=== PATIENT | female | born 1955 | race Caucasian/White ===

== ENCOUNTER 2017-11-17 09:41 | Emergency (ER) | payer BC, SELFPAY ==
[2017-11-17 09:42] VITALS: BP 111/61; PULSE 69; RESP 17; TEMP 36.8; O2SAT 99; BMI 23.6
--- NOTE | 2017-11-17 10:24 | RAD_ITS ---
STUDY: X-RAY - RIGHT SHOULDER REASON FOR EXAM: Female, 61 years old. Injury TECHNIQUE: 2 view(s) of the shoulder. COMPARISON: None. FINDINGS: There is comminuted fracture at the proximal humerus involving the neck and tuberosities. There is anteromedial displacement of the humeral shaft. Glenohumeral joint appears essentially intact. There are degenerative changes of the acromioclavicular joint. No osseous destruction. The soft tissue structures are unremarkable. Normal visualized pulmonary apex. RAD/Shoulder min 2 Views IMPRESSION: Comminuted fracture at the proximal humerus involving the neck and tuberosities with anteromedial displacement of the humeral shaft Intact glenohumeral joint Electronically Signed: Lalo Parnell MD at 11:29 EST Tel , Service support ,
--- NOTE | 2017-11-17 10:24 | RAD_ITS ---
STUDY: X-RAY - RIGHT ELBOW REASON FOR EXAM: Female, 61 years old. Injury TECHNIQUE: 3 view(s) of the elbow. COMPARISON: None. FINDINGS: Normal visualized humerus, radius and ulna. Normal radiocapitellar and ulnotrochlear articulations. The soft tissue structures are unremarkable. RAD/Elbow min 3 Views IMPRESSION: Normal x-ray examination of the elbow. Electronically Signed: Lalo Parnell MD at 11:28 EST Tel , Service support ,
--- NOTE | 2017-11-17 10:28 | RAD_ITS ---
STUDY: X-RAY - RIGHT WRIST REASON FOR EXAM: Female, 61 years old. Injury TECHNIQUE: 3 view(s) of the wrist were obtained. COMPARISON: None. FINDINGS: There is comminuted intra-articular fracture of the distal radius with posterior angulation. There is associated fracture of the ulnar styloid. 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 The carpal bones are intact. No osseous destruction. Normal radiocarpal articulation. Normal distal radioulnar articulation. Normal carpal bones. Normal carpal articulations. Normal second through fifth carpometacarpal articulations. Normal visualized metacarpal bones. The soft tissue structures are unremarkable. RAD/Wrist min 3 Views IMPRESSION: Comminuted intra-articular fracture, distal radius, with posterior angulation with associated fracture of the ulnar styloid Electronically Signed: Lalo Parnell MD at 11:31 EST Tel , Service support ,
[2017-11-17] MEDS: Ondansetron 4 MG/2 ML Vial IV (10:30)
--- NOTE | 2017-11-17 11:25 | CT_ITS ---
STUDY: CT RIGHT SHOULDER REASON FOR EXAM: Female, 61 years old. Fall and shoulder pain RADIATION DOSAGE (If Supplied By Facility): CTDIvol = ( 34.37 ) mGy, DLP = ( 766.54 ) mGycm TECHNIQUE: The patient was scanned in a multi detector CT scanner. High resolution transaxial imaging was performed without the administration of intravenous contrast material. Sagittal and coronal images were reconstructed. Individualized dose optimization techniques were used for this CT. COMPARISON: None. FINDINGS: A severely comminuted fracture of the humeral neck seen extending into the humeral head with slight angulation. No definite evidence for intra-articular extension into the glenohumeral joint seen. The glenoid rim appears essentially intact. Degenerative changes in the acromioclavicular joint. There is hemarthrosis present. Intramuscular hematoma along the ventral musculature seen of the proximal forearm bicep tendon is not well visualized. Downsloping of the acromion with spurring IMPRESSION: Severely comminuted fracture of the humeral neck extending into the humeral head. No definite intra-articular extension. Associated hemarthrosis and intramuscular hematoma Electronically Signed: Fili Amaya, at 12:57 EST Tel , Service support , CT/Extremity Upper without Contra
[2017-11-17 11:33] VITALS: PULSE 62; RESP 14; O2SAT 100
--- NOTE | 2017-11-17 11:45 | CT_ITS ---
STUDY: CT RIGHT SHOULDER REASON FOR EXAM: Female, 61 years old. Fall and shoulder pain RADIATION DOSAGE (If Supplied By Facility): CTDIvol = ( 34.37 ) mGy, DLP = ( 766.54 ) mGycm TECHNIQUE: The patient was scanned in a multi detector CT scanner. High resolution transaxial imaging was performed without the administration of intravenous contrast material. Sagittal and coronal images were reconstructed. Individualized dose optimization techniques were used for this CT. COMPARISON: None. FINDINGS: A severely comminuted fracture of the humeral neck seen extending into the humeral head with slight angulation. No definite evidence for intra-articular extension into the glenohumeral joint seen. The glenoid rim appears essentially intact. Degenerative changes in the acromioclavicular joint. There is hemarthrosis present. Intramuscular hematoma along the ventral musculature seen of the proximal forearm bicep tendon is not well visualized. Downsloping of the acromion with spurring IMPRESSION: Severely comminuted fracture of the humeral neck extending into the humeral head. No definite intra-articular extension. Associated hemarthrosis and intramuscular hematoma Electronically Signed: Fili Amaya, at 12:57 EST Tel , Service support , CT/Coronals Sag Multi Obl 3-D Rec
--- NOTE | 2017-11-17 11:46 | CT_ITS ---
STUDY: CT WRIST RIGHT REASON FOR EXAM: Female, 61 years old. Fall and trauma to the wrist. Pain RADIATION DOSAGE (If Supplied By Facility): CTDIvol = ( 58.41 ) mGy, DLP = ( 616.45 ) mGycm. Individualized dose optimization techniques were used for this CT.? TECHNIQUE: CT images of the right wrist were obtained. COMPARISON: Wrist radiograph from November 17, 2017. FINDINGS: There is a comminuted intra-articular impacted fracture of the distal radius noted with dorsal angulation. Subtle fracture of the ulnar styloid process also seen. Exam is significantly motion degraded. Carpal bones are not well assessed on this examination. There is diffuse osteopenia which for the limits assessment. Degenerative changes in the carpal carpal as well as the carpal metacarpal joints seen. There is soft tissue swelling noted CT/Extremity Upper without Contra IMPRESSION: Comminuted intra-articular impacted fracture of the distal radius with dorsal angulation. Subtle fracture of the ulnar styloid. Exam is significantly motion degraded. If there is further clinical concern for carpal bone fractures MR examination may be of benefit Electronically Signed: Fili Amaya, at 12:53 EST Tel , Service support ,
[2017-11-17 14:50] VITALS: RESP 18
[2017-11-17] MEDS: HYDROmorphone 2 MG TABLET PO ×2 (15:20→16:58)
--- NOTE | 2017-11-17 16:47 | ED.VISSUMM ---
- ER Visit Summary Date of Service: 11/17/17 Chief Complaint: Right arm injury History of Present Illness: The patient is a 61 F who slipped on ice outside, falling to her right upper extremity. No other injuries, but she has been severe pain in her shoulder, wrist, and also some in her elbow. No numbness. No head injury, no hip injury, she was able to stand after the injury. Right-hand dominant. Physical Examination: Vital signs unremarkable, she is in painful distress, tearful, but otherwise okay. She is holding her right upper extremity in position of comfort, she has what appears to be a deformity with ecchymosis anterior right shoulder, not able to move it due to pain, intact axillary sensation. Also severe tenderness distal radius, with no significant deformity but it is swollen. No deformity at the elbow but she has diffuse bony tenderness there as well. Neurovascularly intact distally. No signs of other injury. Test Results: X-rays show no acute elbow pathology, but there is a Colles' fracture of the wrist and a displaced surgical neck fracture of the proximal humerus. Emergency Department Course and Treatment: Patient was initially given morphine, this helped prior to x-ray. Discussed with Dr. Canchola, who advises obtaining CT of wrist and shoulder, which were obtained and she looked at them, advising outpatient follow-up for fixation of the wrist which she will plan for 1-2 weeks away, and reevaluation of her shoulder in 3 days in the office, as it may not need surgical treatment. After a total of morphine 20 mg IV, I placed her in a short arm AP Ortho-Glass splint and sling/swath. Angulation is around 15% dorsally, no closed reduction needed at this time. Afterwards she was given Dilaudid 2 mg orally in order to give her a trial for what we would provide her at home to see if it controlled her pain adequately, as she was offered admission for pain control. No surgery would occur tomorrow due to the nature of her injuries and swelling. Reevaluated the patient multiple times, at one point after much medication she stood up and was feeling lightheaded so we laid her back down and waited, she now is able to walk to the bathroom, and she feels better, prefers to go home. Discussed at length with patient and family, will follow up with Ortho in a couple days, encouraged to return for uncontrolled symptoms. Treatment Plan: As above. Dilaudid 2 mg tabs #20 Disposition: Discharge home with close outpatient orthopedic follow-up Impression: Acute displaced closed right proximal humerus fracture Acute closed displaced right intra-articular Colles' fracture Fall due to slip on ice This note was generated with [employer] dictation software. It may contain incorrect words, spelling, and punctuation that were not noted in review of the chart prior to signing ED Disposition - Plan for ED Patient: Disposition: Home or Assisted Living Chief Complaint: Fall Instructions: ED Fx Colles Wrist No Redu Requ, ED Fx Shoulder Prescriptions: HydromorphONE [Dilaudid] 2 mg PO . Q2-3H PRN 3 Days #20 tab PRN Reason: Pain Ondansetron [Zofran Odt] 8 mg PO Q8H PRN #15 tab PRN Reason: Nausea Referrals: Yvette Canchola DO [STAFF PHYSICIAN] - 11/20/17 (call sunday AM for appt time on Sunday.)
--- NOTE | 2017-11-17 17:11 | ED.DCSUM_ITS ---
- ER Visit Summary Date of Service: 11/17/17 Chief Complaint: Right arm injury History of Present Illness: The patient is a 61 F who slipped on ice outside, falling to her right upper extremity. No other injuries, but she has been severe pain in her shoulder, wrist, and also some in her elbow. No numbness. No head injury, no hip injury, she was able to stand after the injury. Right- hand dominant. Physical Examination: Vital signs unremarkable, she is in painful distress, tearful, but otherwise okay. She is holding her right upper extremity in position of comfort, she has what appears to be a deformity with ecchymosis anterior right shoulder, not able to move it due to pain, intact axillary sensation. Also severe tenderness distal radius, with no significant deformity but it is swollen. No deformity at the elbow but she has diffuse bony tenderness there as well. Neurovascularly intact distally. No signs of other injury. Test Results: X-rays show no acute elbow pathology, but there is a Colles' fracture of the wrist and a displaced surgical neck fracture of the proximal humerus. Emergency Department Course and Treatment: Patient was initially given morphine , this helped prior to x-ray. Discussed with Dr. Canchola, who advises obtaining CT of wrist and shoulder, which were obtained and she looked at them, advising outpatient follow-up for fixation of the wrist which she will plan for 1-2 weeks away, and reevaluation of her shoulder in 3 days in the office, as it may not need surgical treatment. After a total of morphine 20 mg IV, I placed her in a short arm AP Ortho-Glass splint and sling/swath. Angulation is around 15% dorsally, no closed reduction needed at this time. Afterwards she was given Dilaudid 2 mg orally in order to give her a trial for what we would provide her at home to see if it controlled her pain adequately, as she was offered admission for pain control. No surgery would occur tomorrow due to the nature of her injuries and swelling. Reevaluated the patient multiple times, at one point after much medication she stood up and was feeling lightheaded so we laid her back down and waited, she now is able to walk to the bathroom, and she feels better, prefers to go home. Discussed at length with patient and family, will follow up with Ortho in a couple days, encouraged to return for uncontrolled symptoms. Treatment Plan: As above. Dilaudid 2 mg tabs #20 Disposition: Discharge home with close outpatient orthopedic follow-up Impression: Acute displaced closed right proximal humerus fracture Acute closed displaced right intra-articular Colles' fracture Fall due to slip on ice This note was generated with [employer] dictation software. It may contain incorrect words, spelling, and punctuation that were not noted in review of the chart prior to signing ED Disposition - Plan for ED Patient: Disposition: Home or Assisted Living Chief Complaint: Fall Instructions: ED Fx Colles Wrist No Redu Requ, ED Fx Shoulder Prescriptions: HydromorphONE [Dilaudid] 2 mg PO . Q2-3H PRN 3 Days #20 tab PRN Reason: Pain Ondansetron [Zofran Odt] 8 mg PO Q8H PRN #15 tab PRN Reason: Nausea Referrals: Yvette Canchola DO [STAFF PHYSICIAN] - 11/20/17 (call sunday AM for appt time on Sunday.)
[2017-11-17 17:32] VITALS: BP 111/76; PULSE 82; RESP 16; O2SAT 99
[2017-11-17 17:59] VITALS: BP 110/65; PULSE 98; RESP 16; O2SAT 99
== END 2017-11-17 18:06 | disposition home or self-care (01) ==
PROVIDERS: Emergency Provider Emergency Medicine; Family Provider Family Medicine; PCP Family Medicine
DX: S42.211A Unspecified displaced fracture of surgical neck of right humerus, initial encounter for closed fracture (principal); S52.531A Colles' fracture of right radius, initial encounter for closed fracture; W00.0XXA Fall on same level due to ice and snow, initial encounter; Y93.9 Activity, unspecified; Y92.9 Unspecified place or not applicable; Y99.9 Unspecified external cause status; Z79.899 Other long term (current) drug therapy
CPT/HCPCS: 29105; 73030; 73080; 73110; 73200; 76377; 96374; 96375; 96376; 99283; A4216; J2405

== ENCOUNTER → 2017-11-20 09:33 | Outpatient (CLI) | payer BC, SELFPAY ==
--- NOTE | 2017-11-20 09:35 | RAD_ITS ---
STUDY: X-RAY - RIGHT SHOULDER REASON FOR EXAM: Fall 4 days ago. TECHNIQUE: 2 view(s) of the shoulder. COMPARISON: Radiographs 11/17/2017. FINDINGS: Normal glenohumeral articulation. There is acromioclavicular arthrosis. Normal acromion. There is no interval change of the comminuted fracture of the humeral neck with anterior medial displacement, the fracture also extends into the greater tuberosity. The soft tissue structures are unremarkable. Normal visualized pulmonary apex. RAD/Shoulder min 2 Views IMPRESSION: No interval change of the proximal humeral fracture. Electronically Signed: Juan Vazquez MD at 10:03 EST Tel , Service support ,
== END ==
PROVIDERS: Family Provider Family Medicine; PCP Family Medicine; Visit Provider Orthopaedic Surgery
DX: M25.511 Pain in right shoulder (principal)
CPT/HCPCS: 73030

== ENCOUNTER 2017-11-28 06:03 | Day surgery (SDC) | payer BC, SELFPAY ==
[2017-11-28] VITALS (8 sets, daily range): BP systolic 103–122; BP diastolic 61–68; PULSE 62–89; RESP 12–16; TEMP 36.6–37.1; O2SAT 90–100; BMI 32.8
--- NOTE | 2017-11-28 06:09 | EKG12_ITS ---
Test Reason : PREOP Blood Pressure : / mmHG Vent. Rate : 062 BPM Atrial Rate : 062 BPM P-R Int : 180 ms QRS Dur : 090 ms QT Int : 402 ms P-R-T Axes : 029 020 040 degrees QTc Int : 408 ms Normal sinus rhythm Normal ECG No previous ECGs available Confirmed by SENAIT GIBSON, SJ ([id number]), city editor RAMIN ARRIETA ([id number] on 12/05/2017 1:35:57 PM Referred By: Yvette Canchola Confirmed By:SJ SAPP MD
--- NOTE | 2017-11-28 07:30 | RAD_ITS ---
STUDY: X-RAY - RIGHT HUMERUS REASON FOR EXAM: ORIF of proximal humeral fracture. TECHNIQUE: 5 fluoroscopic views of the humerus. COMPARISON: Radiographs 11/20/2017. FINDINGS: There is an orthopedic plate and screws transfixing a proximal humeral fracture in anatomic alignment and position. 104.5 seconds of fluoroscopy time was used. Electronically Signed: Juan Vazquez MD at 11:30 EST Tel , Service support , RAD/Humerus min 2 Views
--- NOTE | 2017-11-28 07:30 | RAD_ITS ---
STUDY: X-RAY - RIGHT WRIST REASON FOR EXAM: ORIF of distal radial fracture. TECHNIQUE: 2 fluoroscopic view(s) of the wrist were obtained. COMPARISON: Radiographs 11/17/2017. FINDINGS: There is an orthopedic plate and screws transfixing a distal radial fracture in anatomic alignment and position. Electronically Signed: Juan Vazquez MD at 14:03 EST Tel , Service support , RAD/Wrist min 3 Views
[2017-11-28] MEDS: Cefazolin 2 GM in 0.9% Normal Saline 100 ML IV (07:32)
--- NOTE | 2017-11-28 07:55 | PCM.DC.ORTHO ---
Discharge Diet: No Restrictions - shoulder in sling, move fingers as much as possible, may remove sling to extend elbow, elevate fingers above heart, call with concerns Discharge Activity: May Not Drive May shower in (days): 1 Ice area for (Minutes): 20 - Every hour while awake. Weight Bearing Status: Weight bearing as tolerated Keep extremity elevated above heart level: Operative Extremity Call your doctor if your incision/area has: Continuous Slow Oozing, Sudden Increased Bleeding, Increased Pain/ Swelling, Increased Redness, Foul Smelling Discharge Call your doctor if you observe: Fever of 101 or Higher, Coldness, Increased Pain, Numbness or Tingling, Change in Color, Calf discomfort Allergies/Adverse Reactions: Allergies No Known Allergies Allergy (Verified 11/27/17 14:02) Medications to take at Discharge ondansetron 4 mg disintegrating tablet 4 mg PO Q6H PRN #30 tab 11/20/17 paroxetine 10 mg tablet 10 mg PO QAM 11/20/17 acetaminophen 325 mg tablet 325 mg PO Q6H PRN 11/27/17 hydrocodone 7.5 mg-acetaminophen 300 mg tablet 1 tab PO Q6H PRN 7 Days #60 tab 11/27/17 hydromorphone 2 mg tablet 2 mg PO Q4H 11/27/17 ondansetron 4 mg disintegrating tablet 4 mg PO Q6H PRN #20 tab 11/27/17 Primary Care Physician: Norma Montez [Primary Care Provider] - Please Follow Up With: Yvette Canchola, - [phone]
--- NOTE | 2017-11-28 07:56 | OP.PCM_ITS ---
Report of Operation Date of Procedure: 11/28/17 Pre-Operative Diagnosis: right proximal humerus and right distal radius intraarticular fracture Post-Operative Diagnosis: same Surgery/Procedure Performed:: right orif right proximal humerus and orif right distal radius Type of Anesthesia:: General/Regional Anesthesiologist: Chad Mcnamara Estimated Blood Loss (mL): 175cc Fluids Replaced: 2000ml lr Description of Procedure: Preoperative note Lauryn is a 62-year-old female who fell onto her right side about a week and half ago. X-rays and CT show right distal radius fracture intra-articular and a right proximal humerus fracture. Risks benefits and alternatives surgery discussed with patient. We did get a CT scan to confirm fracture pattern. Risks including but not limited to blood loss, blood clot, infection, neurovascular injury, failure procedure, loss of life and loss of limb. Patient is aware like proceed with right proximal humerus open reduction internal fixation and right distal radius open reduction internal fixation. Operative note Patient seen and examined in preoperative holding area. Right arm is marked. Patient is brought to the operating room placed supine on the operating table. Sign, anesthesia, antibiotics were administered. The right arm was prepped and draped in usual sterile fashion. She is placed in beachchair positioning and all bony prominence is well-padded SCDs was placed on her bilateral lower extremities. Marked out our incision for our proximal humerus ORIF. We marked out from the coracoid process down laterally over the insertion of the deltoid. Timeout was performed. We then used a 15 blade cut the skin and tenotomy dissect down to level of the cephalic vein. Cephalic vein was then released and the deltopectoral interval was maintained. We then were able to retract the cephalic vein medially is that this is the point of ease. We dissected down to the clavipectoral fascia which was excised. We dissected down to level the fracture site. We then debrided out the fracture site we irrigated with copious amounts of sterile saline any clotting. We then used with the help of a [place] and a bone hook and some indirect reduction techniques were able to reduce the fracture. Confirmed in AP and lateral planes good reduction of the fracture. We then placed our 2.5 proximal humerus plate. We are able to use fluoroscopy to make sure that we are at the proximal aspect about 5 mm distal to the insertion of the rotator cuff. We then placed a couple of K wires through the plate in order fixated to the bone. We then placed our first 3.5 cortical screw in the oblong screw hole and read this helps further reduce the shaft of the bone and get us out of varus. We then were able to place 3.5 locking screws self-tapping into the head we placed 2 [phone] into the humeral head further, allowing us to get better valgus with an anatomic reduction of the fracture. We then filled and are more distal shaft screws however we had difficulty in getting good fixation of her most proximal screw hole is at the fracture site so we did replace the cortical screw with a 28 mm locking screw after the more distal 2 screws were placed and had good reduction of the bone plate interface. We irrigated the incision with copious amounts of sterile saline. The clavipectoral fascia was closed with 2-0 Vicryl the skin was closed with 3-0 Vicryl in a running 4-0 Monocryl sterile dressings were applied. We then moved to our distal radius. We then reprepped the area and redraped for the right distal radius. We out our incision for our plate fixation. We placed a sterile tourniquet around the proximal humerus just distal to the plate. Arm is elevated and tourniquet was raised her pressure to 50 torr. Then used a 10 blade to cut through the skin at the level of the on top of the FCR is about a 4 cm incision and using fluoroscopy to ensure that we had good length of our incision. We then dissected down with tenotomy syllable of the FCR FCR was then released and brought ulnarly we dissected down to the FCR fascia down to the printer quadratus the quadratus pronator quadratus was then released sharply from its insertion on the radial styloid and then with a Linder elevated across the bone. We then used a combination of a K wire and indirect reduction techniques to reduce the fracture site. We noticed we had some Some comminution of the fracture we did use a dental pick to irrigate the debride the inside debride the fracture site. We irrigated with copious amounts of sterile saline. We were able to take out our plate which was a 2.4 volar distal plate. We then placed our 2 screws in the cortical shaft with placed the first was a cortical screw placed using a variable angle guide and then standard technique placed. We then placed she had quite combination of her bone we then did place locking screws in the remaining pieces after had good fixation of the plate to the bone and when she had and some comminution and some weak bone. We then were able to increase her volar tilt to bring the shaft down to the bone in place our 2.7 cortical screws were placed 112 114 160 mm screw and in standard technique. We had great reduction of the fracture site in multiple planes we had no encroachment of any screws and then the intra- and articular surface. We irrigated the incision with copious amounts of sterile saline numerous times throughout the case and use fluoroscopy numerous times throughout the case to aid our fixation and reduction of her fracture site. The skin was closed of the pronator quadratus was placed over top of the plate skin was closed was closed with 3-0 Vicryl in a running 4-0 Monocryl sterile dressings and a loose splint was applied. Patient tolerated procedure well there are no complications. The patient was also placed in a sling. Still the patient transferred to the recovery room in stable condition patient had no comp occasions. Postoperative note Use hand as much as possible open and closed views elbow to bend and extend as much as possible. Follow-up in 2 weeks Julio sent to hospital pharmacy next Call with increased pain numbness tingling or further issues arise Follow-up in 2 weeks Discussed with son at length the risk for infection and blood clot and he is aware of the risk associated with these next This note was generated with [employer] software. It may contain incorrect words, spelling, and punctuation that were not noted in checking the note before signing.
[2017-11-28 10:40] LABS: Hematocrit 35.6 % (37-47); Hemoglobin 11.5 g/dl (12.0-15.0); Mean Corp Hgb Conc 32.3 g/gl (32-36); Mean Corpuscular Volume 89.7 fL (81-99); Mean Platelet Vol. 9.4 fl (6.2-12.0); Platelet Count 256 K/mm3 (150-450); RBC Distribution Width CV 14.4 % (11.6-14.6); Red Blood Count 3.97 M/mm3 (4.2-5.4); White Blood Count 8.1 K/mm3 (4.4-11.0)
[2017-11-28 10:41] LABS: Scan Indicated on CBC? Y/N NO
[2017-11-28] MEDS: Mupirocin Ointment 22gm Tube 1 APPLIC (12:27)
[2017-11-28] MEDS: HYDROcodone Bitartrate/Apap 5/325 Tablet PO (14:30)
== END 2017-11-28 15:55 | disposition home or self-care (01) ==
LOC: SDC 06:05 → AC 06:06
PROVIDERS: Anesthesiology; Family Provider Family Medicine; PCP Family Medicine; Visit Provider Orthopaedic Surgery
PROC: (CPT 23615; principal; 2017-11-28 07:10)
DX: S42.201A Unspecified fracture of upper end of right humerus, initial encounter for closed fracture (principal); S52.571A Other intraarticular fracture of lower end of right radius, initial encounter for closed fracture; S52.614A Nondisplaced fracture of right ulna styloid process, initial encounter for closed fracture; W00.0XXA Fall on same level due to ice and snow, initial encounter; Y93.9 Activity, unspecified; Y92.9 Unspecified place or not applicable; Z79.899 Other long term (current) drug therapy; I10 Essential (primary) hypertension; E78.00 Pure hypercholesterolemia, unspecified
CPT/HCPCS: 01630; 23615; 25609; 64415; 73060; 73110; 76000; 85027; 93005; J7120; J2405

== ENCOUNTER → 2017-12-13 15:42 | Outpatient (CLI) | payer BC, SELFPAY ==
--- NOTE | 2017-12-13 15:44 | RAD_ITS ---
STUDY: X-RAY - RIGHT WRIST REASON FOR EXAM: Postop 2 weeks. TECHNIQUE: 3 view(s) of the wrist were obtained. COMPARISON: Fluoroscopic images 11/28/2017. FINDINGS: There is an orthopedic plate and screws transfixing a distal radial fracture in anatomic alignment and position. There is an overlying cast. RAD/Wrist min 3 Views IMPRESSION: ORIF of distal radial fracture. Electronically Signed: Juan Vazquez MD at 16:09 EDT Tel , Service support ,
--- NOTE | 2017-12-13 15:44 | RAD_ITS ---
STUDY: X-RAY - RIGHT SHOULDER REASON FOR EXAM: Female, 62 years old. Postoperative evaluation. TECHNIQUE: 2 view(s) of the shoulder. COMPARISON: November 20, 2017 FINDINGS: There is stable generalized osteopenia. There is moderate arthrosis of the glenohumeral and acromioclavicular joints unchanged. Normal acromion. The patient has undergone plate and screw fixation of the proximal humeral fracture with near-anatomic alignment and minimal callus formation. No complications are noted. The soft tissue structures are unremarkable. Normal visualized pulmonary apex. RAD/Shoulder min 2 Views IMPRESSION: Stable osteopenia with osteoarthritic changes as described. Postsurgical changes of the proximal humerus with no complications. Electronically Signed: John Marlow MD at 14:52 EDT , Service support ,
== END ==
PROVIDERS: Family Provider Family Medicine; PCP Family Medicine; Visit Provider Orthopaedic Surgery
DX: S42.201A Unspecified fracture of upper end of right humerus, initial encounter for closed fracture (principal); S52.571D Other intraarticular fracture of lower end of right radius, subsequent encounter for closed fracture with routine healing; X58.XXXA Exposure to other specified factors, initial encounter; Y93.9 Activity, unspecified; Y92.9 Unspecified place or not applicable; Y99.9 Unspecified external cause status
CPT/HCPCS: 73030; 73110

== ENCOUNTER 2018-03-08 09:00 | Outpatient (RCR) | payer BC, SELFPAY ==
--- NOTE | 2017-12-19 11:49 | HP.OTEVAL_ITS ---
Patient's Visit Information SHANITA EVANGELISTA is a 62 year old F, referred to Occupational Therapy by Yvette Canchola DO,, with a diagnosis of R ORIF Proximal Humerus, ORIF Distal Radius. Date of Evaluation: 12/19/17 Occupational Therapist: Naomy Salcedo - Subjective Subjective: Pt, Shanita, arrived today and noted that she fell on ice in [facility] while out for walk. She noted she broke humerus and wrist. She had surgery [facility] for both shoulder and wrist. She noted ORIF to both shoulder at proximal humerus and wrist at distal radius.Unable to recall if displaced ulna.With further review of online documentation from surgical report she did have subtle ular styloid fx in conjunction.Elbow was intact, and R proximas humerus was displaced. She is able 3 weeks out from surgery at this time. - Pain Right Shoulder 1 Pain Intensity Range: 6, 7 Right Wrist 1 Pain Intensity Range: 1, 6, 7 - Objective Objective/Observation: Increased edema in elbow, wrist, and hand. Significant limited ROM and strength. Increased pain with mvmt. Steri strips over scar. Scar appears closed depsite steri strips being intact. - ROM Shoulder: R see below; L WNL Elbow: R 0-118; L WNL Forearm: unable to supinate wrist at this time; L WFL Wrist: Flex R 2-28, L 0-78; ext R 0-0, L 0-45 MP: 2nd-5th R 9-38, 10-38, 5-27, 10-23; L 0-96, 0-89, 0-80, 0-80 PIP: 2-th R 5-53, 14-54, 0-46, 5-46; L 0-98, 0-102, 0-104, 0-97 DIP: 2-5th R 0-11, 0-4, 0-24, 0-29; L WNL ROM Comments: Shoulder ROM to be taken in gravity herbie gtz next session. She was painful at this time. She will continue to slowly progresss with increased ROM of shoulder. She is to continue pendulum exercises at this time. Shanita is unable to make composite fist at this time with R hand. Fingers are swollen. Edema and pain and lack of movement for past 3 weeks are affecting ROM at this time. - Strength Shoulder: R unable to test at this time; L WFL Reporting Coordinator: R unable at this time. Strength Comments: Further strength meaurements to occur next session when pain is decreased. Time limited during session to complete measurements due to fabrication of splint. - Edema Elbow: Increased edema in R elbow. Tubigrip and movement to help manange Proximal Phalanx: 2nd-5th R (cm) 8.4, 8.6, 8.3, 6.5 thumb 7.9; L 7.0, 7.0, 6.3, 6.0 thumb 6.9 - In-Hand Manipulation Finger to Palm Translation: Unable - Right, Normal - Left Palm to Finger Translation: Unable - Right, Normal - Left Shift: Unable - Right, Normal - Left Rotation: Unable - Right, Normal - Left - DASH-Disabilities of Arm, Shoulder& Hand DASH Sum: 133 - Goals Goal:: Shanita to increased R engineering program manager to that of L hand to promote increased strength and ability to manipulate self-care items 4/5 trials 80% fo the time by d/c. Goal:: Shanita R UE to be that WFL of that of L UE to promote increased ROM and ability to complete fx movement needed for ADL/IADLs by time of d/c. Goal:: Shanita to to have no more that 1/10 pain with completing fx and meaingful activites with R diminat UE 4/5 trials 80% of the time to promote increased ability to complete ADL/IADls and return to PLOF by d/c. Goal:: Shanita to exhibit increased finger dexterity and FMC through increased performance on 9 hole pegboard test as compared to L hand by d/c. Goal:: Shanita to complete edema manage techniques to promote decreased swelling in R UE to increased ROM and decreased pain to returnt o ALD/IADls by tiem of d/c. Goal:: Shanita to complete scar massage to promote desensitization and decreased sensitivity over scar to promote increased ability for ROM and to return to PLOF by d/c. Goal:: Shanita to be (I) to return to all ADls and IALDs including work tasks such as typing 4/5 trials 80% of the time with minimal pain by d/c. Goal:: Shanita to be (I) to open jar and cut food to promote increased engineering program manager and B hand coordiantion and strength 4/5 trials 80% of the time by d/c. - Rehabilitation General Assessment: Pt., Shanita, arrived for OT evaluation on this date. She is s/p ORIF to proximal humerus and distal radius. Bernabe presents with increased pain with movement as well as increased swelling of R affected UE. Shanita is R hand dominant. She has decreased ROM, strength, and ability to complete ADl/IAdls at this time. She is unable to form composite fist to manipulate selfcare items with R dominat hand. A wrist cock up splint with wrist in neutral and support to MCP with fingers free fabricated at this time. Additional measurements for shoulder ROM to be taken in gravity eliminated plane next session as she had increased pain with movements. She is to continue exercises given to her by Dr. Canchola as well as some exercises to wrist and hand by OT. Further follow up and set up of additional HEP to occur next session (s). Shanita to start OT for progressing ROM,strength, and bilateral hand manipulation and FMC to return to PLOF to complete all ADL/IADLs by time of d/c. Rehabilitation Potential: Good - Anticipated Interventions Anticipated Interventions: A/AAROM/PROM, Strengthening, Edema Control, Scar Care , Massage, Desensitization, Wound Care, Modalities, Orthoses, Joint Protection/ Energy Conservation, Ergonomic Education, Dynamic Sitting Balance, Fine Motor Coord/Compa, ADL Training, Caregiver Training, Home Program - Visit Plan Frequency: 2-3x /Week Duration: 4 Weeks General Plan: OT to address progressive ROM, strength, scar management, edema control, FMC, finger dexterity and B hand cooridantion and manipulation skills to promote increased ability to return (I) to all ADls and IADls by time of d/ c. 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 TEXT: Thank you for the opportunity to evaluate your patient. For Medicare and Medicare HMO plans, please review the plan of care and approve it. It will need to be FAXED BACK to us at [phone] for Medicare purposes. Please let me know if there are questions or concerns regarding this plan of care. Physician Signature: Date:
--- NOTE | 2018-01-14 12:51 | HP.OTCOM_ITS ---
OT Communication Note 01/14/[address] Yvette Canchola, DO Completed new measurements on this date. Completed shoulder measurements for AROM in supportive chair to try and decreased compensations. Compensations still noted at this time and cues to adjust. Previously very limited and increased laterally leaning to complete shoulder movements. Laterally leaning present due able to start to self-correct with cues. AROM measurements of R UE are as follows: Shoulder Today: Flexion R 0-78, Initial evaluation: 0-51 with increased lateral compensations and increased pain to 6/10 with movements. Shoulder flexion gravity eliminated position R 0-60. PROM in gravity eliminated R flexion 0-90 degrees Today: Extension R 0-37; Initial evaluation: R 0-18 Today: ABD 0-68 Initial evaluation: 0-42 Today: IR elbow at 90 0-36 and ER 0-22. Initial Evaluation: ROM measured in supine for IR and ER. Increased compensations noted as decreased shoulder abduction present at this time; noted and general approximation of ER is 0-18 degrees from supine, and R IR 0-31 degrees. Forearm and wrist ROM: Today: supination 0-59, Initial evaluation: unable Today: radial dev 0-13, Initial evaluation:unable Today: ulnar dev 0-14 , Initial evaluation:unable Today: wrist flexion R 0-46, Initial evaluation: 2-28 Today: wrist ext 0-16. Initial evaluation: 0-0 Today: Finger flexion MP 2-5th:0-75, 0-74, 3-71, 0-73; PIP 2-5th 0-90, 0-93, -4-90, 0-82; DIP 2-5th 0-56, 0-51, -3-65, -5-61. Edema measurements of fingers at proximal phalanx are as follows 2 7.7 cm, 3rd 7.5 cm, 4th 6.9 cm, 5th 6.3 cm, thumb 7.5 cm. Pt. able to make composite fist. 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 Initial evaluation: MP: 2nd-5th R 9-38, 10-38, 5-27, 10-23; L 0-96, 0-89, 0-80, 0-80 PIP: 2-th R 5-53, 14-54, 0-46, 5-46; L 0-98, 0-102, 0-104, 0-97 DIP: 2-5th R 0-11, 0-4, 0-24, 0-29; L WNL Edema R finger 8 wrap R 44.1 cm, L 42.5 cm; MCP R 20.5 cm, L 19 cm. Edema present in hand and elbow. 2+ pitting over MCP on dorsal hand, 1+ pitting over fingers. Some pitting noted t/o UE around elbow as well. Overall, she is progressing. Edema has significantly decreased. Working on increasing understanding of HEP and exercises to complete daily. PT order received for shoulder and OT will start to focus on addressing hand and wrist. Sincerely, Naomy Salcedo, OTR/L Contact Information
--- NOTE | 2018-01-17 14:49 | HP.PTEVAL_ITS ---
Patient's Visit Information SHANITA EVANGELISTA is a 62 year old F referred to Physical Therapy by Yvette Canchola DO with a diagnosis of s/p Right prox humerus fx plating 11/28/17. Date of Evaluation: 01/17/18 Physical Therapist: Jessa Quiroz - Visit Plan Frequency: 3x /Week Duration: 3 Weeks Plan: Focus on UE ROM- passive stretching, AAROM, AROM, strength- modalities as needed- no US - Subjective Subjective: Patient reports that she slipped on the ice- plated both wrist and shoulder by Dr. Canchola- and she wants her to see PT for her shoulder. She has been doing exercises at home- she has been using a cane at home. Surgery was Nov 28, 2017. Was in a sling for 4 weeks at least maybe 6 weeks. she stopped wearing the brace on the wrist. Patient reports that the shoulder is achy with no shooting pains. MD wants her to take a pain pill before therapy. Pain is located in the shoulder- radiates to the upper trap- and down to the wrist. no NT in the hand- problems with finger dexterity secondary to the wrist fracture. No CROWDER, blurred vision or dizziness. Sleep: not disturbed- side sleeper. no recent x-rays. 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 Very active before this happened and fully I. Loves to ride her bike. PMHx: none Meds: paxil. Right hand dominate. - Objective Posture: FH, RS, Increased kyphosis with guarding of the right UE. Palpation: tender along upper trap, bicpital groove and the AC joint. ROM: AROM: Flexion: 70 degrees with compensation, Abd: 60 degrees with compensation IR: inside pocket of her jeans. ER: 50 degrees PROM: Flexion: 95 degrees, Abd: 90 degrees. IR: to belly, ER: 60 degrees. Strength: Isometric: 4+/5 with discomfort at neutral - Goals Goal 1:: Patient will be I with HEP and progression Goal Time Frame: 4-6 Weeks Goal 2:: Patient will demo full AROM of the right UE where deficit to ease ADl's Goal Time Frame: 4-6 Weeks Goal 3:: Patient will maintain proper posture t/o tx session to demo increased scap s/s. Goal Time Frame: 4-6 Weeks Goal 4:: Patient will report no difficulty with ADL's for 1 week Goal Time Frame: 4-6 Weeks - Rehabilitation Potential Physical Therapy Diagnosis: Patient presents with hypomobility s/p prox humerus plating- patient presents with decreased ROM, strength and muscular endurance leading to abnormal posture and increased pain/difficulty with ADL's. Rehabilitation Potential: Good - Anticipated Interventions Patient/Client Instruction: Educate patient on: Benefits of Fitness Program For the Purpose of:: To improve ability to perform ADL's Therapeutic Exercise to Include: Strength training, Endurance training, Body mechanics, Postural training, Flexibilty training, Passive ROM, Active ROM, Scapular Strength/Stabilization For the Purpose of:: To improve muscle performance and motor function Manual Therapy Techniques to Include: Mobilization, Passive ROM, Soft tissue mobilization For the Purpose of:: To increase ROM TENS: Yes Cryotherapy (ice pack, ice massage): Yes Thermo therapy (hot pack): Yes Ultrasound (thermal/non thermal): No For the Purpose of:: To decrease pain Thank you for the opportunity to evaluate your patient. For Medicare and Medicare HMO plans, please review the plan of care and approve it. It will need to be FAXED BACK to us at [phone] for Medicare purposes. Please let me know if there are questions or concerns regarding this plan of care. Physician Signature: Date:
--- NOTE | 2018-02-11 13:21 | HP.OTDCSUM_ITS ---
HP - OT D/C Summary It has been my pleasure to treat LAURYN EVANGELISTA under orders from Yvette Canchola DO, for the diagnosis of R ORIF Proximal Humerus, ORIF Distal Radius for a total of 22 visit(s). Please see the following information for a summary of their discharge status. - Overall Improvement % Improvement: 75 - Objective Objective/Function: Completed after TE. ROM measurements are as follows: wrist flexion 0-50, L 0-90, wrist ext R 0-29, L 0-54; radial dev R 0-14, L 0-16, ulnar dev R 0-21, L 0-30; supination R 0-69, L WNL; thumb radial adduction R 0- 38, L 0-61; thumb opposition R 0-15, L 0-20. 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 No numbness and no tingling. Progressed from previous measurements. - Goals Patient Goals: Regain Mobility, Regain Strength, Decrease Pain, Return to Work, Decrease Swelling/Stiffness, Improve Fine Motor Skills, Use Hand/Wrist/Arm Normally Again, Sleep Better, Increase ROM, Be More Independent in ADLS, Resume Former Household Responsibilities (Cooking,Cleaning,Yard, etc.), Resume Hobbies Goal:: Lauryn to increased R ballistician to that of L hand to promote increased strength and ability to manipulate self-care items 4/5 trials 80% fo the time by d/c. Goal:: Lauryn R UE to be that WFL of that of L UE to promote increased ROM and ability to complete fx movement needed for ADL/IADLs by time of d/c. Goal:: Lauryn to to have no more that 1/10 pain with completing fx and meaingful activites with R diminat UE 4/5 trials 80% of the time to promote increased ability to complete ADL/IADls and return to PLOF by d/c. Goal:: Lauryn to exhibit increased finger dexterity and FMC through increased performance on 9 hole pegboard test as compared to L hand by d/c. Goal:: Lauryn to complete edema manage techniques to promote decreased swelling in R UE to increased ROM and decreased pain to returnt o ALD/IADls by tiem of d/c. Goal:: Lauryn to complete scar massage to promote desensitization and decreased sensitivity over scar to promote increased ability for ROM and to return to PLOF by d/c. Goal:: Lauryn to be (I) to return to all ADls and IALDs including work tasks such as typing 4/5 trials 80% of the time with minimal pain by d/c. Goal:: Lauryn to be (I) to open jar and cut food to promote increased ballistician and B hand coordiantion and strength 4/5 trials 80% of the time by d/c. - Plan Plan: D/c'ing today due to insurance limits. She is at 22 of total 25 appointments. OT was completed treatment for both shoulder and hand. PT order has been recieved and completing tx for shoulder. PT continuing to address shoulder. She is to continue HEP for hand. Multiple handouts and education have been provided throughout therapy sessions on HEP. She verbalized understanding. - D/C Information Discharge Comments: Lauryn has signififcant progressed from time of evaluation. She has significant edema and swelling and very limited movement. Edema has decreased and she is using hand for all ADL/IADLs at this time. SHe is to continue HEP for hand and PT for shoulder. She is to call with questions concerns. If there are questions or concerns regarding this patient's occupational therapy , please fell free to call me at [phone]. Thank you for the referral of this patient. Sincerely, Naomy Salcedo
--- NOTE | 2018-02-15 08:25 | HP.PTREVAL_ITS ---
Yvette Canchola, DO, It has been my pleasure to treat SHANITA EVANGELISTA over the last 13 visits for s/p Right prox humerus fx plating 11/28/17. Please see the progress note below for an update on the physical therapy plan of care! Subjective: Patient reports that the shoulder is stiff- so is the hand. It swells at night. If she does certain things the pain will stop her- if she raises to far above her head or behind her back. Uses her left hand but is making herself use the right if she can. Feels that she is 75% better. Goes back to work in 3 weeks would like to continue PT until she returns to work. Objective/Function: Posture: FH, RS, Increased kyphosis with LESS guarding of the right UE. Palpation: tender along biceps and triceps from the AC Joint to the elbow. ROM: AROM: Flexion: 105 degrees with compensation, Abd: 95 degrees with compensation IR: inside pocket of her jeans. ER: 50 degrees PROM: Flexion :130 degrees, Abd: 160 degrees. IR: to belly, ER: 60 degrees. Strength: Isometric: 4+/5 with discomfort at neutral. Plan Plan: Continue 3x a week for 3 weeks- Do 10-15 minutes of PROM at each Goals Goal 1:: Patient will be I with HEP and progression Goal Time Frame: 4-6 Weeks Goal Progress: Progressing Goal 2:: Patient will demo full AROM of the right UE where deficit to ease ADl's Goal Time Frame: 4-6 Weeks Goal Progress: Progressing Goal 3:: Patient will maintain proper posture t/o tx session to demo increased scap s/s. Goal Time Frame: 4-6 Weeks Goal Progress: Progressing Goal 4:: Patient will report no difficulty with ADL's for 1 week Goal Time Frame: 4-6 Weeks Goal Progress: Progressing Anticipated Interventions Patient/Client Instruction: Educate patient on: Benefits of Fitness Program For the Purpose of:: To improve ability to perform ADL's Therapeutic Exercise to Include: Strength training, Endurance training, Body mechanics, Postural training, Flexibilty training, Passive ROM, Active ROM, Scapular Strength/Stabilization For the Purpose of:: To improve muscle performance and motor function Manual Therapy Techniques to Include: Mobilization, Passive ROM, Soft tissue mobilization For the Purpose of:: To increase ROM TENS: Yes Cryotherapy (ice pack, ice massage): Yes Thermo therapy (hot pack): Yes Ultrasound (thermal/non thermal): No For the Purpose of:: To decrease pain Please do not hesitate to contact me at [phone] by phone or Fax: if you have questions or concerns regarding this new plan of care! Sincerely, Jessa Quiroz
--- NOTE | 2018-03-08 09:00 | DT_ITS ---
This patient was seen during an EMR downtime March 04, 2018 - March 11, 2018. This patient may have a combination of paper and electronic documentation or all paper documentation. All documentation is viewable within the e-chart portion of [facility] for each patient visit.
--- NOTE | 2018-03-12 17:06 | HP.PTDCSUM ---
HP - PT D/C Summary It has been my pleasure to treat SHANITA EVANGELISTA under orders from Yvette Canchola DO, for the diagnosis of s/p Right prox humerus fx plating 11/28/17 for a total of 21 visit(s). Discharge Date: Please see the following information for a summary of their discharge status. 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 She is ready to go back and feels that its time to go back. She is getting most of the ROM back into the shoulder but is limited by IR- feels the wrist is also a bigger issue as it does not move as well as it should and hurts limiting her behind the back motion. She is going to become a member of [employer] to continue her home exercise program. S he feels that exercises is imperative for her to maintain what she has gained and to move forwards. - Pain R UE Pain Intensity (Out of 10): 2 R wrist Pain Intensity (Out of 10): 0 - Overall Improvement % Improvement: 85 - Objective Objective/Function: Due to electronic downtime procedure, the information from March 04 through March 10 was electronically scanned into medical records. Posture: good throughout treatment session. Gait: WNL-good arm swing and trunk rotation. Palpation: tender along upper trap, bicipital groove and tip of the acromion. AROM: flexion-125 degrees, abd: 110 degrees, IR: pocket, ER: 65 degrees. Strength tested at neutral: flxn, extn, abd, IR, ER: 4+/5 throughout- Scap: fair - Goals Goal 1:: Patient will be I with HEP and progression Goal Progress: Goal Met Goal 2:: Patient will demo full AROM of the right UE where deficit to ease ADl's Goal Progress: Progressing Goal 3:: Patient will maintain proper posture t/o tx session to demo increased scap s/s. Goal Progress: Progressing Goal 4:: Patient will report no difficulty with ADL's for 1 week Goal Progress: Progressing - Plan Plan: Discharge to I HEP through [facility]. - D/C Information If there are questions or concerns regarding this patient's physical therapy, please feel free to call me at [phone]. Thank you for the referral of this patient. Sincerely, Jessa Quiroz
== END 2018-03-08 19:00 | disposition home or self-care (01) ==
LOC: PT 09:00
PROVIDERS: Family Provider Family Medicine; PCP Family Medicine; Visit Provider Orthopaedic Surgery
DX: Z79.890 Hormone replacement therapy (principal)
CPT/HCPCS: 97110; 97140; 97162; 97164; 97166; 97530; 97760

== ENCOUNTER 2019-06-16 16:39 | Emergency (ER) | payer BC, SELFPAY ==
[2019-06-16 16:40] VITALS: BP 128/77; PULSE 71; RESP 16; TEMP 36.4; O2SAT 98; BMI 36.5
--- NOTE | 2019-06-16 17:47 | ED.VISSUMM ---
- ER Visit Summary Date of Service: 06/16/19 Chief Complaint: Right lower extremity pain History of Present Illness: The patient is a 63 F presenting with right lower extremity pain. Patient states this started approximately 2 weeks ago. Patient returned from vacation from [place]. States she was in the car for long period of time. States since then she has had pain in her right lower extremity. She called her primary care physician was advised to come to the ED to rule out DVT. She denies chest pain or shortness of breath. Denies fever. Denies history of blood clots. Denies other complaints. Physical Examination: Vitals are stable. Patient is afebrile. Alert no acute distress. HEENT exam is unremarkable. Neck is supple. Lungs are clear and equal bilaterally. Heart is regular rate and rhythm. Abdomen is soft nontender nondistended. Extremities mild right anterior thigh tenderness. No erythema or warmth. Active full range of motion. Normal distal pulses. Skin is warm and dry. No focal neurologic deficit. Remainder of exam is unremarkable. Emergency Department Course and Treatment: Right lower extremity venous Doppler shows Normal venous Doppler ultrasound of the right lower extremity. Basic metabolic panel is unremarkable. Patient is advised to continue NSAIDs at home. Advised to follow-up with primary care physician. Advised return to ED for worsening complaints. Disposition: Discharge home Impression: Right lower extremity pain This note was generated with [employer] dictation software. It may contain incorrect words, spelling, and punctuation that were not noted in review of the chart prior to signing ED Disposition - Plan for ED Patient: Instructions: Muscle Spasm Referrals: Norma Montez [Primary Care Provider] -
--- NOTE | 2019-06-16 17:57 | US_ITS ---
STUDY: VENOUS DOPPLER ULTRASOUND - RIGHT LOWER EXTREMITY REASON FOR EXAM: Female, 63 years old. Right thigh pain TECHNIQUE: Ultrasound evaluation of the deep vein system to include yun-scale imaging and compression was performed. Yun-scale imaging and Doppler sonographic evaluation, including duplex spectral analysis and qualitative color flow sonography, was performed. COMPARISON: None. FINDINGS: Common Femoral Vein: Normal compression, spontaneity and augmentation. Normal color Doppler. Common Femoral Vein/Greater Saphenous Junction: Normal compression, spontaneity and augmentation. Normal color Doppler. Femoral Proximal: Normal compression, spontaneity and augmentation. Normal color Doppler. Femoral Middle: Normal compression, spontaneity and augmentation. Normal color Doppler. Femoral Distal: Normal compression, spontaneity and augmentation. Normal color Doppler. Popliteal Vein: Normal compression, spontaneity and augmentation. Normal color Doppler. Posterior Tibial Vein: Normal compression, spontaneity and augmentation. Normal color Doppler. Peroneal Vein: Normal compression, spontaneity and augmentation. Normal color Doppler. US/Venous Duplex Imag/Limited/Uni IMPRESSION: Normal venous Doppler ultrasound of the right lower extremity. Electronically Signed: Lalo Del Toro, at 18:32 EDT Tel , Service support ,
[2019-06-16 18:17] LABS: Anion Gap 6 (5-15); BUN 18 mg/dL (7-18); BUN/Creat Ratio 21.7 RATIO (10-20); Calcium,Total 8.9 mg/dL (8.5-10.1); Chloride 108 mmol/L (98-107); Creatinine, Serum 0.83 mg/dL (0.55-1.02); EST Glomerular Filtration Rate 74 mL/min (>60); Est Glom Filt Rate - Afr Amer 90 mL/min (>60); Glucose 91 mg/dL (74-106); Magnesium 2.2 mg/dL (1.6-2.6); Phosphorus 2.8 mg/dL (2.5-4.9); Potassium 3.7 mmol/L (3.5-5.1); Sodium Level 138 mmol/L (136-145)
--- NOTE | 2019-06-16 19:13 | ED.DEP ---
ED Disposition - Plan for ED Patient: Instructions: Muscle Spasm Referrals: Norma Montez [Primary Care Provider] -
[2019-06-16 19:19] VITALS: PULSE 94; RESP 20; O2SAT 97
--- NOTE | 2019-06-16 19:19 | ED.RN ---
THIS NURSE REVIEWED D/C INSTRUCTIONS WITH PT. PT VERBALIZED UNDERSTANDING OF INSTRUCTIONS. PT DENIES FURTHER NEEDS OR QUESTIONS AT THIS TIME. PT AMBULATES FROM ROOM ON OWN WITHOUT ASSISTANCE FROM STAFF
== END 2019-06-16 19:21 | disposition home or self-care (01) ==
LOC: ED 17:57
PROVIDERS: Emergency Provider Emergency Medicine; Family Provider Family Medicine; PCP Family Medicine
DX: M79.651 Pain in right thigh (principal); Z79.899 Other long term (current) drug therapy
CPT/HCPCS: 80048; 83735; 84100; 93971; 99282

== ENCOUNTER 2021-06-16 17:30 | Outpatient (RCR) | payer BC, SELFPAY ==
--- NOTE | 2021-05-30 17:38 | HP.PTEVAL_ITS ---
Patient's Visit Information SHANITA EVANGELISTA is a 65 year old F referred to Physical Therapy by TY HONG with a diagnosis of L ankle OA S/P fusion 01/05/21. Date of Evaluation: 04/07/21 Physical Therapist: Cuate Willis, PT, ATC - Visit Plan Frequency: 2-3x /Week Duration: 4-6 Weeks Plan: Cont with focus on ROM and strengthening - Subjective DOS: 01/05/21. Pt reports she had some tendons repaired and had an ankle fusion performed. Pt rerports she has no limitations per her surgeon, but notes she is still has increased pain and swelling with prolonged weightbearing activity. Pt reports she was NWBing for 6 weeks in a boot after surgery, and then WBAT in a cam boot for the last 8 weeks. Pt notes she has been issued an ankle brace that she is suppose to start wearing as she weans herself out of the boot, but she has been too insucure to attempt that task at this time. 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 Pt reports numbness on the dorsal aspect of her L foot, but no other tingling or numbness. Occasional sleep difficulty secondary to pain. Pt reports sshe is able to negotiate stairs one at a time. 0/10 pain at rest, 5/10 pain at worst. - Pain L foot Pain Intensity (Out of 10): 0 Pain Intensity Range: 5 Comment: Just in the mornings when I first start walking and after sitting - Objective Neuro: B LE sensation is WNL to light touch. B patellar reflex= 2/3. Palpation: Moderate welling still noted at this time. No obvious signs of infection. Incisions fully healed. ROM: R ankle DF= 10, PF= 60; L ankle DF= 0, PF= 10. MMT: R ankle is grossly 5/5 throughout; L ankle is 4-/5 and painful. Girth: L= 58 cm, R= 54 cm - Goals Goal 1:: Decrease L ankle pain x 50% to aid with sleep Goal Time Frame: 4-6 Weeks Goal 2:: Increase L ankle DF ROM x 10 degrees to aid with restoring a more normalized gait pattern Goal Time Frame: 4-6 Weeks Goal 3:: Increase L ankle strength x 1 grade to aid with tolerance for standing and ambulation Goal Time Frame: 4-6 Weeks Goal 4:: I with HEP Goal Time Frame: 4-6 Weeks - Rehabilitation Potential Physical Therapy Diagnosis: Pt has L ankle pain, weakness, and limited ROM secondary to L ankle fusion. Rehabilitation Potential: Good - Anticipated Interventions Patient/Client Instruction: Educate patient on: Condition, Plan of Care For the Purpose of:: To improve self management Therapeutic Exercise to Include: Strength training, Endurance training, Balance training, Flexibilty training, Gait and locomotor training, Passive ROM, Active ROM For the Purpose of:: To decrease pain, To increase ROM, To improve muscle performance and motor function Cryotherapy (ice pack, ice massage): Yes For the Purpose of:: To decrease pain Thank you for the opportunity to evaluate your patient. For Medicare and Medicare HMO plans, please review the plan of care and approve it. It will need to be FAXED BACK to us at [phone] for Medicare purposes. For Medicare only, by signing this I certify the plan of care. Please let me know if there are questions or concerns regarding this plan of care. Physician Signature: Date:
--- NOTE | 2021-06-16 18:18 | HP.PTDCSUM ---
It has been my pleasure to treat SHANITA EVANGELISTA referred by TY HONG, with the diagnosis of L ankle OA S/P fusion 01/05/21 for a total of 22 visit(s). Discharge Date: Please see the following information for a summary of their discharge status. Subjective: I havent had pain for over one week L foot Pain Intensity (Out of 10): 0 % Improvement: 90 Objective/Function: L ankle pain 0/10. L ankle ROM: DF= 17 degrees. L ankle MMT: 5/5 throughout. Pt is I with HEP Goal 1:: Decrease L ankle pain x 50% to aid with sleep Goal Progress: Goal Met Goal 2:: Increase L ankle DF ROM x 10 degrees to aid with restoring a more normalized gait pattern Goal Progress: Goal Met Goal 3:: Increase L ankle strength x 1 grade to aid with tolerance for standing and ambulation Goal Progress: Goal Met Goal 4:: I with HEP Goal Progress: Goal Met Plan: Discharge If there are questions or concerns regarding this patient's physical therapy, please feel free to call me at [phone]. Thank you for the referral of this patient. Sincerely, Cuate Willis, PT, ATC Balance/Gait/Functional tests - Balance/Special Test Scores Lower Extremity Functional Score: 55
== END 2021-06-16 19:00 | disposition home or self-care (01) ==
LOC: PT 17:30
PROVIDERS: PCP Family Medicine
DX: S92.534A Nondisplaced fracture of distal phalanx of right lesser toe(s), initial encounter for closed fracture (principal); M19.072 Primary osteoarthritis, left ankle and foot
CPT/HCPCS: 97110; 97140; 97161; 97164

== ENCOUNTER → 2022-03-15 | Outpatient (CLI) | payer MEDICAID, SELFPAY ==
[2022-03-15 13:18] LABS: Mucous, Urine 0 SEEN /hpf (<or=2+); Red Blood Cells-Urine 0 SEEN /hpf (0-5)
[2022-03-15 13:25] LABS: Color, Urine Yellow (Yellow); Glucose, Dipstick Normal (Normal); Ketone-Dipstick Negative (Negative); Leukocyte Esterase-Dipstick 500 /ul (Negative); Nitrite-Dipstick Negative (Negative); Occult Blood-Urine 10 /ul (Negative); Protein-Dipstick Negative (Negative); Urine Bilirubin Dipstick Negative (Negative); Urine Clarity Sl. Cloudy (Clear); Urine Urobilinogen Normal (Normal)
[2022-03-15 13:32] LABS: Bacteria 1+ /hpf (None Seen); Squamous Epithelial Cells - UA 5-10 SEEN /hpf (5-10); White Blood Cells 25-50 SEEN /hpf (0-5)
== END | disposition home or self-care (01) ==
LOC: LABSPEC 12:49
PROVIDERS: PCP Family Medicine; Visit Provider Physician Assistant
DX: R30.9 Painful micturition, unspecified (principal)
CPT/HCPCS: 81001; 87077; 87086; 87088; 87186

== ENCOUNTER → 2022-08-22 | Outpatient (CLI) | payer MEDICAID, SELFPAY ==
[2022-08-22 11:12] LABS: Bacteria 0 SEEN /hpf (None Seen); Mucous, Urine 0 SEEN /hpf (<or=2+); Red Blood Cells-Urine 0 SEEN /hpf (0-5)
[2022-08-22 11:17] LABS: Color, Urine Yellow (Yellow); Glucose, Dipstick Normal (Normal); Ketone-Dipstick 5 mg/dl (Negative); Leukocyte Esterase-Dipstick 500 /ul (Negative); Nitrite-Dipstick Negative (Negative); Occult Blood-Urine 50 /ul (Negative); Protein-Dipstick 30 mg/dl (Negative); Urine Bilirubin Dipstick Negative (Negative); Urine Clarity Cloudy (Clear); Urine Urobilinogen 1 mg/dl (Normal); Urine pH 6.5 (5.0 - 8.0)
[2022-08-22 11:24] LABS: Squamous Epithelial Cells - UA 0-5 SEEN /hpf (5-10); White Blood Cells 50-100 SEEN /hpf (0-5)
== END | disposition home or self-care (01) ==
LOC: LABSPEC 10:22
PROVIDERS: PCP Family Medicine; Referring Provider Physician Assistant Surgical; Visit Provider Physician Assistant Surgical
DX: N39.0 Urinary tract infection, site not specified (principal)
CPT/HCPCS: 81001; 87086; 87088; 87186

== ENCOUNTER → 2022-10-04 | Outpatient (CLI) | payer MEDICAID, SELFPAY ==
[2022-10-04 11:19] LABS: Mucous, Urine 0 SEEN /hpf (<or=2+); Squamous Epithelial Cells - UA 0 SEEN /hpf (5-10)
[2022-10-04 11:23] LABS: Color, Urine Yellow (Yellow); Glucose, Dipstick Normal (Normal); Ketone-Dipstick Negative (Negative); Leukocyte Esterase-Dipstick 500 /ul (Negative); Nitrite-Dipstick Positive (Negative); Occult Blood-Urine 250 /ul (Negative); Protein-Dipstick 100 mg/dl (Negative); Urine Bilirubin Dipstick Negative (Negative); Urine Clarity Sl. Cloudy (Clear); Urine Urobilinogen 1 mg/dl (Normal)
[2022-10-04 11:30] LABS: Bacteria 4+ /hpf (None Seen); Red Blood Cells-Urine 10-25 SEEN /hpf (0-5); White Blood Cells >100 SEEN /hpf (0-5)
== END | disposition home or self-care (01) ==
LOC: LABSPEC 10:59
PROVIDERS: PCP Family Medicine; Visit Provider Physician Assistant
DX: R35.0 Frequency of micturition (principal)
CPT/HCPCS: 81001; 87077; 87086; 87088; 87186

== ENCOUNTER → 2023-01-02 | Outpatient (CLI) | payer MEDICAID, SELFPAY ==
[2023-01-02 12:30] LABS: Mucous, Urine 0 SEEN /hpf (<or=2+)
[2023-01-02 12:41] LABS: Color, Urine Yellow (Yellow); Glucose, Dipstick Normal (Normal); Ketone-Dipstick 5 mg/dl (Negative); Leukocyte Esterase-Dipstick 500 /ul (Negative); Nitrite-Dipstick Negative (Negative); Occult Blood-Urine 150 /ul (Negative); Protein-Dipstick 30 mg/dl (Negative); Specific Gravity, Urine 1.025 (1.002-1.030); Urine Bilirubin Dipstick Negative (Negative); Urine Clarity Clear (Clear); Urine Urobilinogen 1 mg/dl (Normal)
[2023-01-02 12:51] LABS: Bacteria 2+ /hpf (None Seen); Red Blood Cells-Urine 5-10 SEEN /hpf (0-5); Squamous Epithelial Cells - UA 0-5 SEEN /hpf (5-10); White Blood Cells 50-100 SEEN /hpf (0-5)
== END | disposition home or self-care (01) ==
PROVIDERS: PCP Family Medicine; Visit Provider Physician Assistant
DX: N39.0 Urinary tract infection, site not specified (principal)
CPT/HCPCS: 81001; 87077; 87086; 87088; 87186